=== PATIENT | female | born 2000 | race Caucasian/White ===

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

== ENCOUNTER 2023-10-25 13:06 | Outpatient (AMB) | payer MEDICAID, SELFPAY ==
--- NOTE | 2023-10-25 13:18 | MHC.OFFVIS ---
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 Allergies No Known Allergies Allergy (Verified 10/25/23 13:21) Medication List - Last Reconciled 10/25/23 by Parisa Gardner MD dextroamphetamine-amphetamine 10 mg 1 tab PO QAM ferrous sulfate 325 mg PO QAM melatonin 1 mg PO BEDTIME PRN HPI Comments Details: 23 y/o female comes for evaluation of episodes of syncope. Her first episode was in 2017 - she had a headache, had not eaten that day, it was around 1pm she felt lightheaded , felt warm ,blurry vision and she passed out .Her friend was with her - the episode lasted less than 1 minutes. No confusion. She had another episode in 2020 -similar to 2018 . Her recent episode in fall on 2022-she had headache - in the kitchen around 10 pm eating ice cream - she felt warm, blurry vision and passed out. she denies any tongue biting or urinary incontinence or confusion. she has frequent headaches - usually bitemporal,with light sensitivity , noise sensitivity, pressure , nausea etc. when severe she has mild visual aura. No sensory aura. It can last few hrs to 2 days . she takes ibuprofen or tylenol or excedrin , caffeine etc. she has 3-4 headaches a month. she denies chest pain or palpitations during these episodes [facility] Medical History ADD (attention deficit disorder) Migraine with aura Anemia History of head injury History of migraine headaches Family History Father Migraine Mother HTN (hypertension) Brother Heart failure Blood clotting disorder Social History Household Members: Family and Other Household Members Other:: Grandmother and partner Patient Tobacco Use Status: Current everyday Tobacco user Tobacco use type: Smokeless Tobacco Physical Exam Vital Signs: Last Vital Signs BP 110/70 10/25/23 13:19 BMI result Body Mass Index 16.6 Const General: cooperative, healthy appearing, comfortable and no acute distress Nutritional Appearance: thin Orientation/consciousness: patient oriented x3 Eyes Pupils: Equal, round and reactive pupils present Neuro General: patient oriented x3, gait normal, tone normal, moves all extremities and no focal motor deficits Cranial nerves: Yes Facial sensation intact/muscles of mastication intact, Yes Equal, round and reactive pupils present, Yes Bilaterally intact EOM present, Yes Nystagmus not present, Yes Normal facial strength present, Yes Midline tongue present and Yes Symmetric palate elevation present Cognition (Neuro): normal cognition Gait exam (Neuro): Normal gait present Motor exam (neuro): 5/5 motor strength present throughout and Normal motor muscle tone present throughout Deep tendon reflexes (DTR's): Right triceps reflex intensity grade: 2+, Left triceps reflex intensity grade: 2+, Rt Biceps (C5, C6): 2+, Left biceps reflex intensity grade: 2+, Right brachioradialis reflex intensity grade: 2+, Left brachioradialis reflex intensity grade: 2+, Right patellar reflex intensity grade: 2+ and Left patellar reflex intensity grade: 2+ Coordination: [id number] test normal Assessment & Plan Assessment & Plan (1) Syncope: Comment: Migraine related ? vasovagal etc Code(s): R55 - Syncope and collapse Category: Medical Qualifiers: Syncope type: unspecified Qualified Code(s): R55 - Syncope and collapse (2) Migraine with aura: Code(s): G43.109 - Migraine with aura, not intractable, without status migrainosus Category: Medical Plan I will evaluate her with MRI and EEG I will trial her on magnesium 250mg qhs and Vit B2 400mg qam to decrease the number of headaches. Increase fluid intake, discussed maintaining good diet and sleep. Orders: Orders MR head/brain wo con Today R55 - Syncope and collapse EEG electroencephalogram Today R55 - Syncope and collapse Medications: New riboflavin (vitamin B2) 400 mg PO QAM 30 tabs 6RF magnesium oxide 250 mg PO .qhs 30 tabs 6RF Discontinued sertraline Discontinued Reason: Patient no longer taking 100 mg PO DAILY 30 days 30 tabs 0RF risperidone (Risperdal) Discontinued Reason: Patient no longer taking 0.5 mg PO BID 30 days 60 tabs 0RF bupropion HCl XL Discontinued Reason: Patient no longer taking 150 mg PO QAM 30 days 30 tabs 0RF Coding Level of Care Code New Pt Level 4 (86831) Diagnoses Syncope, unspecified syncope type R55 Syncope type: unspecified Migraine with aura G43.109
[2023-10-25 13:19] VITALS: BP 110/70; BMI 16.6
== END 2023-10-25 14:11 | disposition home or self-care (01) ==
LOC: HO.HSMS 13:06
PROVIDERS: Visit Provider Psychiatry & Neurology Neurology
DX: R55 Syncope and collapse (principal); G43.109 Migraine with aura, not intractable, without status migrainosus
CPT/HCPCS: 99204

== ENCOUNTER → 2023-10-25 13:06 | Outpatient (BNVA) | payer MEDICAID, SELFPAY | PROVIDERS: Visit Provider Psychiatry & Neurology Neurology | DX: R55 Syncope and collapse (principal); G43.109 Migraine with aura, not intractable, without status migrainosus | CPT/HCPCS: 99202 ==

== ENCOUNTER 2023-12-01 19:24 | Outpatient (REF) | payer MEDICAID, SELFPAY ==
--- NOTE | ~2023-12-01 | MR_ITS ---
EXAMINATION: MR BRAIN WITHOUT CONTRAST CLINICAL INFORMATION: Syncope, collapse COMPARISON: None. TECHNIQUE: MRI of the brain was obtained using routine sequences without contrast. FINDINGS: No acute infarct. No acute intracranial hemorrhage or extra-axial fluid collection. The ventricles and sulci are normal in size and configuration without significant volume loss or hydrocephalus. No parenchymal signal abnormality. No mass lesion, mass effect, or herniation pattern. Normal intracranial arterial flow voids. Loss of the normal left proximal to mid transverse sigmoid sinus flow void without corresponding blooming artifact on GRE, presumably flow related artifact however could be confirmed with contrast-enhanced MR venogram. Normal appearance of the midline structures. The orbits are grossly unremarkable. The paranasal sinuses and mastoids are well aerated. Normal marrow signal. MR/MR head/brain wo con IMPRESSION: Loss of the normal left proximal to mid transverse sigmoid sinus flow void without corresponding blooming artifact on GRE, presumably flow related artifact however could be confirmed with contrast-enhanced MR venogram. Otherwise, unremarkable MRI. Electronically signed by: Daria Leyva MD 12/17/2023 07:54 PM EDT
== END 2023-12-01 19:25 | disposition home or self-care (01) ==
LOC: HO.MRI 19:24
PROVIDERS: PCP Physician Assistant; Visit Provider Psychiatry & Neurology Neurology
DX: R55 Syncope and collapse (principal)
CPT/HCPCS: 70551

== ENCOUNTER 2023-12-15 08:04 | Outpatient (REF) | payer MEDICAID, SELFPAY ==
--- NOTE | 2023-12-15 08:07 | EEG_ITS ---
FINDINGS: Waking background activity consists of a well-defined 10 hertz moderate voltage posterior alpha frequency that attenuates well with eye opening while low voltage fast frequencies predominate anteriorly. Frequent muscle artifacts are seen at T4. Drowsiness is characterized by diffuse theta slowing of 6 to 7 hertz. Photic stimulation is without activation. Hyperventilation produces no change. No focal, lateralizing, or paroxysmal discharges are seen. IMPRESSION: This awake and drowsy EEG is within normal limits. MD GENET Viramontes/SNEA / [id number]
== END 2023-12-15 08:05 | disposition home or self-care (01) ==
LOC: HO.NEURO 08:04
PROVIDERS: Visit Provider Psychiatry & Neurology Neurology
DX: R55 Syncope and collapse (principal)
CPT/HCPCS: 95816

== ENCOUNTER 2024-02-11 11:32 | Outpatient (REF) | payer MEDICAID, SELFPAY | END 2024-02-11 11:33 | disposition home or self-care (01) | LOC: HO.MRI 11:32 | PROVIDERS: PCP Physician Assistant; Visit Provider Psychiatry & Neurology Neurology | DX: R55 Syncope and collapse (principal); R93.0 Abnormal findings on diagnostic imaging of skull and head, not elsewhere classified | CPT/HCPCS: 70546 ==

== ENCOUNTER 2024-05-16 07:33 | Outpatient (AMB) | payer MEDICAID, SELFPAY ==
--- NOTE | 2024-05-16 07:34 | A.OFFVIS_ITS ---
Vital Signs 05/16/24 07:36 Height 5 ft 5 in Weight 111 lb BMI 18.5 BP 100/72 Blood Pressure Location Rt brachial Position Sitting Intake Visit Reasons: Syncope follow up Intake Note: Patient presents for follow up. patient presents for follow up MRI and EEG results scanned in chart Allergies No Known Allergies Allergy (Verified 05/16/24 07:38) HPI Comments Details: 23 y/o female comes for follow up of episodes of syncope and migraines Her migraine shave decreased to 1-2 /month - drinks water, tylenol or ibuprofen helps.No episodes of syncope. History form initial visit- Her first episode was in 2017 - she had a headache, had not eaten that day, it was around 1pm she felt lightheaded , felt warm ,blurry vision and she passed out .Her friend was with her - the episode lasted less than 1 minutes. No confusion. She had another episode in 2020 -similar to 2018 . Her recent episode in fall on 2022-she had headache - in the kitchen around 10 pm eating ice cream - she felt warm, blurry vision and passed out. she denies any tongue biting or urinary incontinence or confusion. she has frequent headaches - usually bitemporal,with light sensitivity , noise sensitivity, pressure , nausea etc. when severe she has mild visual aura. No sensory aura. It can last few hrs to 2 days . she takes ibuprofen or tylenol or excedrin , caffeine etc. she has 3-4 headaches a month. she denies chest pain or palpitations during these episodes [facility] Medical History Abnormal MRI of head Syncope ADD (attention deficit disorder) Migraine with aura Anemia History of head injury History of migraine headaches Family History Father Migraine Mother HTN (hypertension) Brother Heart failure Blood clotting disorder Social History Household Members: Family and Other Household Members Other:: Grandmother and partner Patient Tobacco Use Status: Current everyday Tobacco user Tobacco use type: Smokeless Tobacco Physical Exam Vital Signs: Last Vital Signs BP 100/72 05/16/24 07:36 BMI result Body Mass Index 18.5 Const General: cooperative, healthy appearing, comfortable and no acute distress Nutritional Appearance: thin Orientation/consciousness: patient oriented x3 Eyes Pupils: Equal, round and reactive pupils present Neuro General: patient oriented x3, gait normal, tone normal, moves all extremities and no focal motor deficits Cranial nerves: Yes Facial sensation intact/muscles of mastication intact, Yes Equal, round and reactive pupils present, Yes Bilaterally intact EOM present, Yes Nystagmus not present, Yes Normal facial strength present, Yes Midline tongue present and Yes Symmetric palate elevation present Cognition (Neuro): normal cognition Gait exam (Neuro): Normal gait present Motor exam (neuro): 5/5 motor strength present throughout and Normal motor muscle tone present throughout Coordination: [id number] test normal Assessment & Plan Assessment & Plan (1) Syncope: Comment: Migraine related ? vasovagal etc Code(s): R55 - Syncope and collapse Category: Medical Qualifiers: Syncope type: unspecified Qualified Code(s): R55 - Syncope and collapse (2) Migraine with aura: Code(s): G43.109 - Migraine with aura, not intractable, without status migrainosus Category: Medical Qualifiers: Intractability: not intractable Status migrainosus presence: without status migrainosus Qualified Code(s): G43.109 - Migraine with aura, not intractable, without status migrainosus Plan MRI and EEG normal MRV normal Continue magnesium 250mg qhs and Vit B2 400mg qam to decrease the number of headaches. Increase fluid intake, discussed maintaining good diet and sleep. Coding Level of Care Code Est Pt Level 4 (58155) Diagnoses Syncope, unspecified syncope type R55 Syncope type: unspecified Migraine with aura and without status migrainosus, not intractable G43.109 Intractability: not intractable Status migrainosus presence: without status migrainosus
--- OUTSIDE RECORDS SUMMARY | 2024-05-16 07:35 | XMS_ITS | Encounter Summary ---
Author Organization Formerly [facility] Address [address] [place] [id number] Care Team Providers Care Irrigation Equipment Remover Name Role Phone System, Provider Not In Primary Care Provider Un available Encounter Details Date Type Department Care Team (Latest Contact Info) Description 05/05/2024 7:16 AM EST - 05/05/2024 11:59 PM [facility] Heart & Vascular [place] [facility] - Cardiology [address] [place] [address] José Campo PA-C [address] [place] [address] Discharge Disposition: Home or Self Care Social History Tobacco Use Types Packs/Day Years Used Date Smoking Tobacco: Never Assessed Sex and Gender Information Value Date Recorded Sex Assigned at Female 10/17/2023 10:32 AM EDT Gender Identity Agender 01/28/2024 12:26 PM EDT Sexual Orientation Heterosexual (straight) 10/16 10:32 AM EDT documented as of this encounter Medications at Time of Discharge Medication Sig Dispensed Refills Start Date End Date amphetamine-dextroamph etamine (ADDERALL XR) 10 MG 24 hr capsule Take 1 capsule (10 mg total) by mouth every morning. Max Daily Amount: 10 mg ferrous sulfate 325 (65 FE) MG tablet Take 1 tablet (325 mg total) by mouth daily. Take 2 hours before or 4 hours after acid reducers. melatonin 3 MG Tab tablet Take 1 mg by mouth nightly. midodrine (ProAmatine) 5 MG tabletIndications:Inap propriate sinus tachycardia Take 1 tablet (5 mg total) by mouth 3 (three) times a day. Take upon waking and then every 4 hours x2 additional doses 90 tablet 5 01/28/2024 07/26/2024 propranolol (INDERAL) 10 MG tabletIndications:Orth ostatic intolerance Take 1 tablet (10 mg total) by mouth 2 (two) times a day. 60 tablet 5 12/24/2023 06/21/2024 documented as of this encounter Progress Notes * José Campo PA-C - 05/05/2024 3:00 PM EST Images from the original note were not included. [facility] Cardiac Electrophysiology Virtual Telemedicine Visit Patient Name Stacy Ambrose Date of 2000 Gender agender Age 23 y.o. Encounter Date 05/05/2024 Knocker Off: Primary Care Physician: Provider Not In System Provider Not In System Reason for Visit Follow-up on management of POTS Assessment & Plan Impression Today, Herbie reports that overall symptoms are fairly stable with the use of propranolol 5 mg dailyand she does not report any breakthrough palpitations prior to sleep or upon waking. She did purchase Thermotabs but unfortunately it is difficult to tolerate on a regular basis and described as grainy . Today we reviewed alternatives such as vitassium capsules, extra strength with each capsule containing 800 mg of mixed salts and I recommended she take 3/day. She has not needed to use midodrineat this point and I did touch upon the fact that we may consider its use as the hot weather approaches as a means to combat vasodilation from heat. Recommendations 1. Continue propranolol 5 mg daily 2. Target 2.5 g of mixed salts per day in combination with 2-3 L of water 3. We will plan on following up before summer, likely mid June at which point we will discuss the use of midodrine either as needed or regularly based on severity of symptoms Subjective History of Present Illness 23-year-old female ( Herbie )with anxiety/depression, ADHD, migraine headaches, iron deficiency anemia, and orthostatic intolerance who was kindly referred for initial discussions regarding managementof probable POTS. She was recently seen by my cardiology colleague, Fern Vasques MD, who performed echocardiogram which revealed normal biventricular structure and function and also underwent tilt table testing with findings consistent with POTS. At our first visit I recommended aggressive hydration on the order of 2 to 3 L of water daily with the addition of 500 to 1000 mg of mixed salts and applied a 30-day MCOT which we will review in detail today Orthostatic symptoms manifest as development of palpitations, dizzy/lightheaded presyncope particularly with prolonged standing and with hot environment such as hot shower. At times she can develop shortness of breath. At first visit I recommended 30-day MCOT and aggressive hydration and salt supplementation. I recommended propranolol IR 10 mg twice daily while awake. After taking propranolol IR 10 mg twice daily it became apparent that she was likely a slow metabolizer (CYP-450 2D6) and I recommended she discontinue for 1 full week and retrial propranolol IR 5 mg once daily with close monitoring of clinical benefit and development of fatigue With continued aggressive hydration and salt supplementation and scheduled this call approximately 6 weeks after last to assess response and determine if he would benefit from the use of vasoconstrictive agent 30-day MCOT performed 10/20 through 11/19/2023 sinus rhythm throughout with an average rate of 80 bpm, minimum of 37 bpm while asleep and a maximum of 174 bpm. High variability in sinus rates there were no high risk features. Review of Systems General: negative for fatigue and weight gain HEENT: negative Respiratory: Denies cough, dyspnea on exertion, orthopnea and PND Cor: No exertional chest pain or dyspnea. No palpitations, LH, or syncope GI: No nausea, vomiting, melena, or hematochezia. Heme: No report of bleeding and easy bruising MSK: negative for muscle cramps and myalgias All other systems were reviewed and are negative other than noted in HPI. Home Medications Prior to Admission medications Medication Sig Start Date End Date Taking? Authorizing Provider amphetamine-dextroamphetamine (ADDERALL XR) 10 MG 24 hr capsule Take 1 capsule (10 mg total) by mouth every morning. Max Daily Amount: 10 mg External Provider, ferrous sulfate 325 (65 FE) MG tablet Take 1 tablet (325 mg total) by mouth daily. Take 2 hours before or 4 hours after acid reducers. External Provider, melatonin 3 MG Tab tablet Take 1 mg by mouth nightly. External Provider, midodrine (ProAmatine) 5 MG tablet Take 1 tablet (5 mg total) by mouth 3 (three) times a day. Take upon waking and then every 4 hours x2 additional doses 01/28/24 07/26/24 José Campo PA-C propranolol (INDERAL) 10 MG tablet Take 1 tablet (10 mg total) by mouth 2 (two) times a day. 12/24/23 06/21/24 José Campo PA-C Medical History No past medical history on file. Surgical History No past surgical history on file. Family History No family history on file. Allergies No Known Allergies Objective Vitals No data found. There is no height or weight on file to calculate BMI. Physical Exam Virtual Visit - unable to perform PE LABS Relevant data reviewed No results found for: K , NA , BUN , CREAT Sign: José Campo PA-C 05/05/2024 3:14 PM --- --- --- --- --- --- --- --- --- --- --- --- --- --- --- --- --- --- --- --- --- --- --- --- ------ --- --- --- --- --- --- --- --- --- --- --- --- --- --- --- --- --- --- --- --- --- --- --- ------ --- Patient is being seen today for a visit via telehealth technology. The patient's identity was confirmed by Name and Date of . The patient reported the following physical address during the telehealth visit: [address] [place] [phone] Telehealth location: HOME In the event visit is disconnected, the patient telephone contact: [phone] Additional persons present during telehealth visit: None The patient was told that if at any point they or the provider feel the video visit is in not adequate they can opt for scheduling a face to face visit. Verbal consent for this telehealth visit was obtained after treatment methods and limitations of telehealth were discussed with the patient. Verbal consent was also obtained to disclose the telehealth medical record to their primary care physician. In the event the connection was lost during the visit, the patient was instructed to go back to [employer] and click begin video visit again Technical quality of visit: Good. documented in this encounter Plan of Treatment Not on file documented as of this encounter Visit Diagnoses Diagnosis POTS (postural orthostatic tachycardia syndrome)- Primary Unspecified tachycardia documented in this encounter Care Teams Irrigation Equipment Remover Relationship Specialty Start Date End Date System, Provider Not In PCP - General 10/02/23 documented as of this encounter
--- OUTSIDE RECORDS SUMMARY | 2024-05-16 07:35 | XMS_ITS ---
Author Name [facility] Organization Unknown History of Medication Use Medication Directions Dispensed Refills Start Date End Date Stat us midodrine (ProAmatine) 5 MG tablet Take 1 tablet (5 mg total) by mouth 3 (three) times a day. Take upon waking and then every 4 hours x2 additional doses 01/28/2024 active propranolol (INDERAL) 10 MG tablet Take 1 tablet (10 mg total) by mouth 2 (two) times a day. 12/24/2023 active amphetamine-dextroamp hetamine (ADDERALL XR) 10 MG 24 hr capsule Take 1 capsule (10 mg total) by mouth every morning. Max Daily Amount: 10 mg active Problems Problem Status Onset Date Problem Type Date of Resoluti on Source POTS (postural orthostatic tachycardia syndrome) active EncounterDiagnosisAct CCT
--- OUTSIDE RECORDS SUMMARY | 2024-05-16 07:35 | XMS_ITS | Clinical Summary ---
Author Organization [facility] Address [address] [place] [address] Care Team Providers Care Assembly Machine Tool Setter Name Role Phone System, Provider Not In Primary Care Provider Un available Allergies No known active allergies Medications Medication Sig Dispensed Refills Start Date End Date Status melatonin 3 MG Tab tablet Take 1 mg by mouth nightly. Active ferrous sulfate 325 (65 FE) MG tablet Take 1 tablet (325 mg total) by mouth daily. Take 2 hours before or 4 hours after acid reducers. Active amphetamine-dextroa mphetamine (ADDERALL XR) 10 MG 24 hr capsule Take 1 capsule (10 mg total) by mouth every morning. Max Daily Amount: 10 mg Active propranolol (INDERAL) 10 MG tabletIndications:O rthostatic intolerance Take 1 tablet (10 mg total) by mouth 2 (two) times a day. 60 tablet 5 12/24/2023 06/21/2024 Active midodrine (ProAmatine) 5 MG tabletIndications:I nappropriate sinus tachycardia Take 1 tablet (5 mg total) by mouth 3 (three) times a day. Take upon waking and then every 4 hours x2 additional doses 90 tablet 5 01/28/2024 07/26/2024 Active Encounters Date Type Department Care Team Description 05/05/2024 7:16 AM EST - 05/05/2024 11:59 PM EST Hospital Encounter [facility] Heart & Vascular [place] [facility] - Cardiology [address] [place] [address] José Campo PA-C Discharge Disposition: Home or Self Care 03/03/2024 11:06 AM EST - 03/03/2024 11:59 PM EST Hospital Encounter [facility] Heart & Vascular [place] [facility] - Cardiology [address] [place] [address] José Campo PA-C Discharge Disposition: Home or Self Care from Last 3 Months Social History Tobacco Use Types Packs/Day Years Used Date Smoking Tobacco: Never Assessed Sex and Gender Information Value Date Recorded Sex Assigned at Female 10/17/2023 10:32 AM EDT Gender Identity Agender 01/28/2024 12:26 PM EDT Sexual Orientation Heterosexual (straight) 10/16 10:32 AM EDT Last Filed Vital Signs Vital Sign Reading Time Taken Comments Blood Pressure 120/81 10/21/2023 9:55 AM EDT Pulse 79 10/21/2023 9:54 AM EDT Temperature - - Respiratory Rate - - Oxygen Saturation 97% 10/21/2023 9:54 AM EDT Inhaled Oxygen Concentration - - Weight 45.3 kg (99 lb 12.8 oz) 10/21/2023 9:54 A M EDT Height 162.6 cm (5' 4 ) 10/21/2023 9:54 AM EDT Body Mass Index 17.13 10/21/2023 9:54 AM EDT Plan of Treatment Health Maintenance Due Date Last Done Comments Hepatitis C Virus Screening 2002 HPV Vaccines (1 - 3-dose series) 2017 DTaP/Tdap/Td Vaccines (1 - Tdap) 2021 Hepatitis B Vaccines (1 of 3 - 19+ 3-dose series) 2021 Pap Smear (Ages 21-65) 08/29/2023 Influenza Vaccine 10/28/2023 04/28/2023, 12/10/2021, 03/04/2021 COVID-19 Vaccine ( - 2023-2 5 season) 2023 04/28/2023, 10/30/2020, 10/02/2020 HIV Screening Completed 04/28/2023 Pneumococcal Vaccine: Pediatric (0-5 Years) and At-Risk Patients (6 to 49 Years) Aged Out No longer eligible b ased on patient's age to complete this topic Care Teams Assembly Machine Tool Setter Relationship Specialty Start Date End Date System, Provider Not In PCP - General 10/02/23
--- OUTSIDE RECORDS SUMMARY | 2024-05-16 07:35 | XMS_ITS | Clinical Summary ---
Author Organization [facility] Address [address] [place] [address] Care Team Providers Care Traveling Buyer Name Role Phone Dalila Pan PA-C Primary Care Provider Source Comments PLEASE NOTE, if this patient is a minor, it may be UNLAWFUL to discuss sensitive information that is contained in these records (such as FAMILY PLANNING, MENTAL HEALTH or SUBSTANCE ABUSE) with the minor patient's parent or other person without the patient's specific authorization.[facility] Allergies No known active allergies Medications fluoride, sodium, (SF 5000 PLUS) 1.1 % creaIndications :[place] twice daily with toothpaste then expectorate. Do not rinse. 51 g 3 11/05/19 23 Active melatonin 1 mg tabletIndicatio ns:Psychophysio logical insomnia Take 1 Tablet by mouth nightly at bedtime as needed for sleep 90 Tablet 1 07/16/19 24 Active polyethylene glycol, PEG, 3350 (GLYCOLAX) 17 gram/dose powderIndicatio ns:Iron deficiency Take 17 g by mouth once daily 510 g 1 07/19/19 24 Active magnesium oxide 250 mg magnesium tabIndications: Migraine without status migrainosus, not intractable, unspecified migraine type Take 400 mg by mouth once daily PER NEUROLOGIST 11/09/19 24 Active riboflavin, vitamin B2, 400 mg tabIndications: Migraine without status migrainosus, not intractable, unspecified migraine type Take 1 Tablet by mouth daily. For migraine prevention PER NEUROLOGIST 11/09/19 24 Active dextroamphetami ne-amphetamine (ADDERALL) 10 mg tablet Take 1 Tablet by mouth every morning PER PSYCH Active ferrous sulfate 325 mg (65 mg iron) tabletIndicatio ns:Iron deficiency TAKE 1 TABLET BY MOUTH ONCE DAILY WITH BREAKFAST 90 Tablet 1 04/27/19 25 Active ferrous sulfate 325 mg (65 mg iron) tabletIndicatio ns:Iron deficiency TAKE 1 TABLET BY MOUTH ONCE DAILY WITH BREAKFAST 90 Tablet 1 10/25/19 24 025 Discontinued Active Problems Problem Noted Date Diagnosed Date POTS (postural orthostatic tachycardia syndrome) 11/09/2023 Major depression 12/10/2021 Generalized anxiety disorder 12/10/2021 Immunizations Name Administration Dates Next Due Flu, Preservative Free 04/28/2023,12/10/2021,09/2020 HPV 9 (Gardasil) 12/10/2021,10/14/2021 Moderna COVID-19 (Spikevax), Mrna, Lnp-s, Pf, 50 Mcg/0.5 Ml, 12yr+ 04/28/2023 Moderna COVID-19 Vaccine, re d cap blue label, 12+ Primary Series 10/30/2020,10/02/2020 TDAP 10/14/2021 Family History Medical History Relation Name Comments Fainting Father Relation Name Status Comments Father Alive Mother Alive Social History Tobacco Use Types Packs/Day Years Used Date Smoking Tobacco: Never Smokeless Tobacco: Never Tobacco Cessation:Counseling Given: Yes Alcohol Use Standard Drinks/Week Comments Never 0 (1 standard drink = 0.6 oz pur e alcohol) Social Connections Answer Date Recorded Connectedness 0 06/10/2022 Financial Resource Strain Answer Date R ecorded Financial Resource Strain 0 2022 Stress Answer Date Recorded Stress 0 06/10/2022 Physical Activity Answer Date Recorded Physical Activity 0 05/07/2021 Food Insecurity Answer Date Recorded Food 0 06/10/2022 Transportation Needs Answer Date Record ed Transportation 0 06/10/2022 Housing Stability Answer Date Recorded Housing 0 06/10/2022 Safety and Environment Answer Date Jorge Alberto rded Safety 0 06/10/2022 Utilities Answer Date Recorded Utilities 0 06/10/2022 Employment Answer Date Recorded Stress 0 06/16/2021 Comments No Sex and Gender Information Value Date Recorded Sex Assigned at Female 05/07/2021 9:59 AM PST Legal Sex Female 12:15 PM PST Gender Identity Non-binary/genderqueer 10:58 AM PDT Sexual Orientation Straight 05/07/2021 9: 59 AM PST Last Filed Vital Signs Vital Sign Reading Time Taken Comments Blood Pressure 104/80 11/09/2023 3:36 PM EDT Pulse 87 11/09/2023 3:36 PM EDT Temperature 37.3 ??C (99.2 ??F) 11/09/2023 3:36 PM ED T Respiratory Rate 16 11/09/2023 3:36 PM EDT Oxygen Saturation 97% 11/09/2023 3:36 PM EDT Inhaled Oxygen Concentration - - Weight 46.9 kg (103 lb 6.4 oz) 11/09/2023 3:36 P M EDT Height 162.6 cm (5' 4 ) 11/09/2023 3:36 PM EDT Body Mass Index 17.75 11/09/2023 3:36 PM EDT Plan of Treatment Upcoming Encounters Date Type Department Care Team (Late st Contact Info) Description 05/30/2024 1:20 PM EST Office Visit [facility] [address] [place] [id number] Dalila Pan PA-C [address] [place] [address] Health Maintenance Due Date Last Done Comments HPV Screening 2002 Pap + HPV 2002 Imm-Varicella (1 of 2 - 13+ 2-dose series) 08/29/2015 Imm-Hepatitis A (1 of 2 - Ri sk 2-dose series) 2021 Imm-Hepatitis B (1 of 3 - 19 + 3-dose series) 2021 Imm-HPV (3 - 3-dose series) 04/16/2022 12/10/2021, 0 10/14/2021 Depression Monitoring 07/27/2023 04/28/2023 , 06/10/2022, 03/12/2022, Additional history exists Cervical Cancer Screening 08/29/2023 Pap Smear 08/29/2023 Dental BW 11/07/2023 11/04/2022 Dental Examination 11/07/2023 11/04/2022 Dental Perio Charting 11/07/2023 11/04/2022 Dental Prophy 11/28/2023 11/25/2022 [id number] ( season) 2023 04/28/2023, 10/30/2020, 10/02/2020 Imm-Influenza (#1) 2023 04/28/2023, 0 12/10/2021, 03/04/2021 Alcohol and Drug Screen 03/29/2024 04/28/19 24, 06/10/2022, 10/14/2021, Additional history exists Annual Preventive Care Visit 04/28/2024 04/28/2023, 05/07/2021 Chlamydia Screening 04/28/2024 04/28/2023, 2 Gonorrhea Screening 04/28/2024 04/28/2023, 2 Syphilis Screening 04/28/2024 04/28/2023 Relationship Safety Screening/Counseling 07/15/2024 07/16/2023, 06/10/2022, 05/07/2021 Tobacco Screening 11/08/2024 11/09/2023 Hypertension Screening (#1) 11/08/2026 Dental FMX/Pano 01/16/2028 01/13/2023, 11/04/2022 Imm-DTaP/Tdap/Td (2 - Td or Tdap) 10/15/2031 022 Hepatitis C Screening Completed 05/13/2021 HIV Screening Completed 04/28/2023, 05/13/2021 Cervical Ablation/Cold-Knife Conization Discontinued Cervical Cryotherapy Discontinued Colposcopy Discontinued Endometrial Biopsy Discontinued Excision/Leep Discontinued HPV Genotyping Discontinued Vaginal Pap Discontinued Vulvoscopy Discontinued Procedures Procedure Name Priority Date/Time Associated Diagnosis Comments HIV 1/2 AG & AB W/RFLX (4TH GEN) Routine 04/28/2023 4:00 PM EST Routine screening for STI (sexually transmitted infection) RPR (MONITOR) W/REFL TITER Routine 04/28/2023 4:00 PM EST Routine screening for STI (sexually transmitted infection) C TRACHOMATIS/N GONORRHOEAE RNA,TMA Routine 04/28/2023 4:00 PM EST Routine screening for STI (sexually transmitted infection) PANORAMIC RADIOGRAPHIC IMAGE Routine 01/13/2023 1:40 PM EDT Impacted third molar tooth Full PROPHYLAXIS - ADULT Routine 11/25/2022 3:00 PM EDT Chronic gingivitis, plaque induced Full INTRAORAL - COMP SERIES OF RADIOGRAPHIC IMAGES Routine 11/04/2022 11:00 AM EDT Chronic gingivitis, plaque induced Caries Full COMP ORAL EVALUATION - NEW/ESTABLISHED PATIENT Routine 11/04/2022 11:00 AM EDT Chronic gingivitis, plaque induced Caries HEPATITIS C AB W/RFLX HCV RNA, QT, RT PCR Routine 05/13/2021 2:33 PM EST Routine general medical examination at a health care facility from Last 3 Months or Most Recently Relevant to Health Maintenance Results * HIV 1/2 AG & AB W/RFLX (4TH GEN) (04/28/2023 4:00 PM EST) [facility] HIV AG/AB, 4TH GEN NON-REAC TIVE NON-REAC TIVE [facility] Comment: HIV-1 antigen and HIV-1/HIV-2 antibodies were not detected. There is no laboratory evidence of HIV infection. PLEASE NOTE: This information has been disclosed to you from records whose confidentiality may be protected by state law. ??If your state requires such protection, then the state law prohibits you from making any further disclosure of the information without the specific written consent of the person to whom it pertains, or as otherwise permitted by law. A general authorization for the release of medical or other information is NOT sufficient for this purpose. ?? For additional information please refer to http://education.[employer]/faq/QHX348 (This link is being provided for informational/ educational purposes only.) The performance of this assay has not been clinically validated in patients less than 2 years old. Blood Blood / Unknown 04/28/2023 4 :00 PM EST 04/28/2023 4:01 PM EST us Dalila Pan PA-C LAB - BLOOD DRAW Final Resul t [facility] [address] [address], [facility] [address] [address] * C TRACHOMATIS/N GONORRHOEAE RNA,TMA (04/28/2023 4:00 PM EST) CHLAMYDIA TRACHOMATIS RNA, TMA NOT DETECTED NOT DETECTED [facility] NEISSERIA GONORRHOEAE RNA, TMA NOT DETECTED NOT DETECTED [facility] COMMENT [facility] Urine Urine specimen / Unknown 04/28/2023 4:00 PM EST 04/28/2023 4:01 PM EST Narrative [facility] - 04/30/2023 5:14 PM EST The analytical performance characteristics of this assay, when used to test SurePath(TM) specimens have been determined by [facility]. The modifications have not been cleared or approved by the FDA. This assay has been validated pursuant to the CLIA regulations and is used for clinical purposes. For additional information, please refer to https://education.[employer]/faq/TMT725 (This link is being provided for information/ educational purposes only.) us Dalila Pan PA-C LAB - NO BLOOD DRAW Edited R esult - Final Performing Organization Address [facility]/ZIP Co de Phone Number [facility] [address] [address], [facility] [address] [address] * RPR (MONITOR) W/REFL TITER (04/28/2023 4:00 PM EST) RPR (MONITOR) W/REFL TITER NON-REACT TWIN NON-REACT TWIN [facility] Blood Blood / Unknown 04/28/2023 4 :00 PM EST 04/28/2023 4:01 PM EST us Dalila Pan PA-C LAB - BLOOD DRAW Edited Resu lt - Final Performing Organization Address [facility]/ZIP Co de Phone Number [facility] [address] [address], [facility] [address] [address] * HEPATITIS C AB W/RFLX HCV RNA, QT, RT PCR (05/13/2021 2:33 PM EST) HEPATITIS C ANTIBODY NON-REACT TWIN NON-REACT TWIN [employer] [facility] SIGNAL TO CUT-OFF 0.01 <1.00 [employer] [facility] Comment: HCV antibody was non-reactive. There is no laboratory evidence of HCV infection. In most cases, no further action is required. However, if recent HCV exposure is suspected, a test for HCV RNA (test code 28425) is suggested. For additional information please refer to http://education.[employer]/faq/EJQ95o5 (This link is being provided for informational/ educational purposes only.) Blood Blood / Unknown 05/13/2021 2 :33 PM EST 05/13/2021 2:36 PM EST us Estee Koehler MD LAB - BLOOD DRAW Edited Resu lt - Final [facility] [employer] [facility] [address] [address], [facility] [address] [address] from Last 3 Months or Most Recently Relevant to Health Maintenance Insurance [place] MED[place] [address] [employer] Care Teams Traveling Buyer Relationship Specialty Start Date End Date Dalila Pan PA-C [address] [place] [address] PCP - General [place] 10/14/21
[2024-05-16 07:36] VITALS: BP 100/72; BMI 18.5
== END 2024-05-16 07:53 | disposition home or self-care (01) ==
PROVIDERS: Visit Provider Psychiatry & Neurology Neurology
DX: R55 Syncope and collapse (principal); G43.109 Migraine with aura, not intractable, without status migrainosus
CPT/HCPCS: 99214

== ENCOUNTER → 2024-05-16 07:33 | Outpatient (BNVA) | payer MEDICAID, SELFPAY | PROVIDERS: Visit Provider Psychiatry & Neurology Neurology | DX: G43.109 Migraine with aura, not intractable, without status migrainosus (principal); R55 Syncope and collapse | CPT/HCPCS: 99212 ==